=== PATIENT | female | born 1985 | race Caucasian/White ===

== ENCOUNTER 2021-11-12 17:34 | Inpatient (IN) | payer MEDICAID, OTHER ==
[~2021-11-12] VITALS: Ht 172.7 cm; Wt 150.0 kg
[2021-11-12] MEDS ORDERED: amLODIPine BESYLATE 5 MG TAB PO ONE (18:00)
[2021-11-12 18:45] LABS: Eosinophils # (auto) 0.4 10 ^3/uL (0-0.8); Eosinophils % (auto) 4.6 % (0.0-7.0); Lymphocytes # (auto) 2.5 10 ^3/uL (0.4-5.4); Mean Corpuscular Volume 74.5 fL (80.0-100.0); White Blood Cell 8.6 10^3/uL (4.4-10.8)
[2021-11-12 18:49] LABS: Basophils # (auto) 0 10 ^3/uL (0-0.2); Basophils % (auto) 0.5 % (0.0-2.0); Hemoglobin 13.6 g/dL (12.2-16.2); Lymphocytes % (auto) 29.5 % (10.0-50.0); Mean Corpuscular Hemoglobin 23.1 pg (28.0-32.0); Monocytes # (auto) 0.4 10 ^3/uL (0-1.3); Monocytes % (auto) 5.1 % (0.0-12.0); Neutrophils # (auto) 5.2 10 ^3/uL (1.6-8.6); Neutrophils % (auto) 60.3 % (37.0-80.0); Nucleated Red Blood Cells % 0.1 %; Red Cell Distribution Width 15.1 % (11.8-14.3)
[2021-11-12 18:56] LABS: Albumin 4.3 g/dL (3.4-5.0); Calcium 9.6 mg/dL (8.5-10.1); Potassium 4.2 mmol/L (3.5-5.1)
[2021-11-12 18:59] LABS: BUN/Creatinine Ratio 18.1; Bilirubin, Total 0.6 mg/dL (0.2-1.0); Total Protein 8.6 g/dL (6.4-8.2)
[2021-11-12] MEDS ORDERED: ENOXAPARIN SOD 150 MG/1 ML SYRINGE SC ONE (19:30)
[2021-11-12] MEDS ORDERED: ASPirin 325 MG TAB PO ONE (19:30)
[2021-11-12] MEDS ORDERED: hydrALAZINE HCL 20 MG/ML VL IV PRN (22:45)
[2021-11-12] MEDS ORDERED: MORPHINE SULFATE INJ 2 MG/ml SYRG IV PRN (22:45)
[2021-11-12] MEDS ORDERED: TEMAZEPAM 15 MG CAP PO PRN (22:45)
[2021-11-12] MEDS ORDERED: ONDANSETRON HCL 4 MG/2 ML VIAL IV PRN (22:45)
[2021-11-12] MEDS ORDERED: NITROGLYCERIN 0.4 MG SL TAB SL PRN (22:45)
[2021-11-12 23:26] LABS: Urine Bacteria FEW /hpf (None Seen); Urine Blood 1+ /uL (Negative); Urine Specific Gravity 1.007 (1.001-1.035); Urine WBC 1 /hpf (0 - 5)
[2021-11-13] MEDS: ACETAMINOPHEN 325 MG TAB PO PRN ×3 (03:15→14:29)
[2021-11-13 05:33] LABS: Albumin 3.7 g/dL (3.4-5.0); Calcium 8.9 mg/dL (8.5-10.1)
[2021-11-13 05:37] LABS: Basophils # (auto) 0.1 10 ^3/uL (0-0.2); Basophils % (auto) 0.6 % (0.0-2.0); Eosinophils # (auto) 0.4 10 ^3/uL (0-0.8); Eosinophils % (auto) 4.3 % (0.0-7.0); Hematocrit 38.7 % (36.0-46.0); Hemoglobin 12.2 g/dL (12.2-16.2); Lymphocytes # (auto) 3.4 10 ^3/uL (0.4-5.4); Lymphocytes % (auto) 39.4 % (10.0-50.0); Mean Corpuscular Hemoglobin 23.4 pg (28.0-32.0); Mean Corpuscular Hgb Conc. 31.5 g/dL (32.0-36.0); Mean Corpuscular Volume 74.3 fL (80.0-100.0); Monocytes # (auto) 0.4 10 ^3/uL (0-1.3); Neutrophils # (auto) 4.4 10 ^3/uL (1.6-8.6); Neutrophils % (auto) 50.7 % (37.0-80.0); Nucleated Red Blood Cells % 0.1 %; White Blood Cell 8.7 10^3/uL (4.4-10.8)
[2021-11-13 05:38] LABS: BUN/Creatinine Ratio 13.9; Bilirubin, Total 0.4 mg/dL (0.2-1.0); Total Protein 6.7 g/dL (6.4-8.2)
[2021-11-13] MEDS: ENOXAPARIN SOD 40 MG/0.4 ML SYRINGE SC SCH (09:06)
[2021-11-13] MEDS: PANTOPRAZOLE 40 MG TAB PO SCH (09:07)
[2021-11-13] MEDS: LISINOPRIL 10 MG TAB PO SCH (09:07)
[2021-11-13] MEDS: ASPirin 81 mg TAB PO SCH (09:07)
[2021-11-13 11:03] LABS: Cholesterol 164 mg/dL (< 200); HDL Cholesterol 52 mg/dL (40-59); LDL Cholesterol 105 mg/dL (< 100); Triglycerides 144 mg/dL (< 150)
[2021-11-13 11:11] LABS: Beta HCG, Quantitative < 1 mlU/mL (1-3); Thyroid Stimulating Hormone 5.96 uIU/mL (0.358-3.74)
[2021-11-13] MEDS ORDERED: ATORVASTATIN 20 MG TAB PO SCH (22:00)
[2021-11-14] MEDS: ACETAMINOPHEN 325 MG TAB PO PRN (01:39)
[2021-11-14 02:04] LABS: Alcohol, Urine < 3.0 mg/dL (0-10); Amphetamine Screen, Urine NEGATIVE (NEGATIVE); Barbiturate Scree,Urine NEGATIVE (NEGATIVE); Benzodiazephine Screen, Urine NEGATIVE (NEGATIVE); Cannabinoid Screen, Urine NEGATIVE (NEGATIVE); Cocaine Screen, Urine NEGATIVE (NEGATIVE); Opiate Scree,Urine NEGATIVE (NEGATIVE); Phencyclidine Screen, Urine NEGATIVE (NEGATIVE)
[2021-11-14 05:00] VITALS: BP 109/64
[2021-11-14 09:00] VITALS: BP 125/81
[2021-11-14] MEDS ORDERED: LISI-716 PO (09:44)
[2021-11-14] MEDS ORDERED: ATOR20TA50 PO (09:44)
[2021-11-14] MEDS: ENOXAPARIN SOD 40 MG/0.4 ML SYRINGE SC SCH (10:00)
[2021-11-14] MEDS: PANTOPRAZOLE 40 MG TAB PO SCH (10:45)
[2021-11-14] MEDS: ASPirin 81 mg TAB PO SCH (10:45)
[2021-11-14] MEDS: LISINOPRIL 10 MG TAB PO SCH (10:46)
[2021-11-14 12:58] VITALS: BP 126/82
[2021-11-14 13:59] LABS: Free T3 3.39 pg/mL (2.3-4.2); Free T4 (Free Thyroxine) 1.42 ng/dL (0.89-1.76)
== END 2021-11-14 14:30 | disposition home or self-care (01) | DRG 199 ==
LOC: ER 17:34 → TELE 22:44 → TELE-CENTR 11-13 20:44
PROVIDERS: ADMIT Nurse Practitioner; ATTEND Internal Medicine
DX: I16.0 Hypertensive urgency (principal); Z68.43 Body mass index [BMI] 50.0-59.9, adult; E66.01 Morbid (severe) obesity due to excess calories; I10 Essential (primary) hypertension; Z20.822 Contact with and (suspected) exposure to COVID-19; J45.909 Unspecified asthma, uncomplicated; K57.90 Diverticulosis of intestine, part unspecified, without perforation or abscess without bleeding; N92.6 Irregular menstruation, unspecified
CPT/HCPCS: 36415; 71045; 74176; 80053; 80061; 80307; 81001; 82533; 83036; 84439; 84443; 84481; 84484; 84702; 85025; 87086; 93005; 93306; 96372; 99291; G0378

== ENCOUNTER → 2023-08-22 | Outpatient (CLI) | payer MEDICAID ==
[~2023-08-22] MED LIST: ATOR20TA50 PO; LISI10TA34 PO
[2023-08-23 07:07] LABS: RPR Non Reactive (Non Reactive)
[2023-08-23 09:09] LABS: HSV 1 IgG Antibody <0.91 index (0.00-0.90); HSV 2 IgG Antibody <0.91 index (0.00-0.90)
[2023-08-23 18:06] LABS: Chlamydia Trachomatis, NAA Negative (Negative); Neisseria gonorrhoeae, NAA Negative (Negative)
== END | disposition home or self-care (01) ==
LOC: LAB 11:28
PROVIDERS: ATTEND Nurse Practitioner Family
DX: Z20.2 Contact with and (suspected) exposure to infections with a predominantly sexual mode of transmission (principal)
CPT/HCPCS: 86592; 86695; 86696; 86703